=== PATIENT | female | born 1950 | race American Indian/Alaskan Native ===

== ENCOUNTER 2020-02-09 13:07 | Observation (INO) | payer MEDICARE ==
--- NOTE | 2020-02-09 13:20 | Event Note ---
ED Screening Note ED Screening Note: MISSED HD FOR SEVERAL DAYS This initial assessment/diagnostic orders/clinical plan/treatment(s) is/are subject to change based on patients health status, clinical progression and re- assessment by fellow clinical providers in the ED. Further treatment and workup at subsequent clinical providers discretion. Patient/guardian urged not to elope from the ED as their condition may be serious if not clinically assessed and managed. Initial orders include: HERE FOR HD
[2020-02-09 14:27] LABS: Basophils % (Auto) 0.8 % (0.0-1.8); Eosinophils # (Auto) 0.2 K/mm3 (0.0-0.4); Eosinophils % (Auto) 3.9 % (0.0-4.3); Hematocrit 28.2 % (30.3-42.9); Hemoglobin 9.5 gm/dl (10.1-14.3); Lymphocytes # (Auto) 0.8 K/mm3 (1.2-5.4); Mean Corpuscular HGB Conc 34 % (30-34); Mean Corpuscular Volume 98 fl (79-97); Monocytes # (Auto) 0.3 K/mm3 (0.0-0.8); Monocytes % (Auto) 7.6 % (0.0-7.3); Platelet Count 216 K/mm3 (140-440); Red Blood Count 2.89 M/mm3 (3.65-5.03); Red Cell Distribution Width 16.3 % (13.2-15.2)
[2020-02-09 14:41] LABS: Calcium 9.5 mg/dL (8.4-10.2)
--- NOTE | 2020-02-09 16:03 | Emergency Department Report ---
ED General Adult HPI - General Chief complaint: Medical Clearance Stated complaint: NEEDS DIALYSIS PUI?: No Time Seen by Provider: 02/09/20 13:21 Source: patient Mode of arrival: Wheelchair Limitations: No Limitations, Other - History of Present Illness Initial comments: Patient is a 69-year-old female that presents emergency room for dialysis. Patient states that she has visited [place] from [place] several times and never had a problem having dialysis however this time the patient labs were not transferred from her dialysis clinic in [place] to her dialysis clinic here and the dialysis clinic was not able to do it. Patient states she normally gets a Friday, , Friday. Patient states her last dialysis was last Friday. Patient states she is going to be here for a week. Patient denies cramps. Patient denies chest pain or shortness of breath. Patient denies shortness of breath and chest pain. Patient denies recent travel. Patient denies recent international travel. Patient denies exposure to the novel coronavirus. Patient denies sick contacts. Patient denies fever and chills. Patient denies cough. Patient denies diarrhea. Patient denies coming in contact with anybody with symptoms of the novel coronavirus. -: Sudden Severity scale (0 -10): 0 Consistency: constant Improves with: none Worsens with: none Associated Symptoms: denies other symptoms. denies: confusion, chest pain, cough, diaphoresis, fever/chills, headaches, loss of appetite, malaise, nausea/vomiting, rash, seizure, shortness of breath, syncope, weakness Treatments Prior to Arrival: none - Related Data Home Medications Medication Instructions Recorded Confirmed Last Taken Aspirin 81 mg PO DAILY 02/09/20 02/09/20 02/09/20 ISOSORBIDE MONOnitrate [Imdur ER] 30 mg PO DAILY 02/09/20 02/09/20 02/09/20 Sertraline [Zoloft] 50 mg PO QDAY 02/09/20 02/09/20 02/09/20 Simvastatin 80 mg PO DAILY 02/09/20 02/09/20 02/08/20 amLODIPine [Norvasc] 10 mg PO DAILY 02/09/20 02/09/20 02/09/20 Allergies Allergy/AdvReac Type Severity Reaction Status Date / Time No Known Allergies Allergy Unverified 02/09/20 13:14 ED Review of Systems ROS: Stated complaint: NEEDS DIALYSIS Other details as noted in HPI Constitutional: denies: chills, fever Eyes: denies: eye pain, eye discharge, vision change ENT: denies: ear pain, throat pain Respiratory: denies: cough, shortness of breath, wheezing Cardiovascular: denies: chest pain, palpitations Endocrine: no symptoms reported Gastrointestinal: denies: abdominal pain, nausea, diarrhea Genitourinary: denies: urgency, dysuria, discharge Musculoskeletal: denies: back pain, joint swelling, arthralgia Skin: denies: rash, lesions Neurological: denies: headache, weakness, paresthesias Psychiatric: denies: anxiety, depression Hematological/Lymphatic: denies: easy bleeding, easy bruising ED Past Medical Hx - Past Medical History Previous Medical History?: Yes Hx Hypertension: Yes Hx Diabetes: Yes Hx Renal Disease: Yes Additional medical history: Dialysis on T, Th, Sat. Fistula to Left Upper Arm - Surgical History Past Surgical History?: Yes Additional Surgical History: Dialysis Fistula to Left Upper Arm - Family History Family history: no significant - Social History Smoking Status: Never Smoker Substance Use Type: None - Medications Home Medications: Home Medications Medication Instructions Recorded Confirmed Last Taken Type Aspirin 81 mg PO DAILY 02/09/20 02/09/20 02/09/20 History ISOSORBIDE MONOnitrate [Imdur ER] 30 mg PO DAILY 02/09/20 02/09/20 02/09/20 Hist ory Sertraline [Zoloft] 50 mg PO QDAY 02/09/20 02/09/20 02/09/20 History Simvastatin 80 mg PO DAILY 02/09/20 02/09/20 02/08/20 History amLODIPine [Norvasc] 10 mg PO DAILY 02/09/20 02/09/20 02/09/20 History ED Physical Exam - General Limitations: No Limitations, Other General appearance: alert, in no apparent distress - Head Head exam: Present: atraumatic, normocephalic - Eye Eye exam: Present: normal appearance - ENT ENT exam: Present: mucous membranes moist - Neck Neck exam: Present: normal inspection - Respiratory Respiratory exam: Present: normal lung sounds bilaterally. Absent: respiratory distress, wheezes, rales - Cardiovascular Cardiovascular Exam: Present: regular rate, normal rhythm. Absent: systolic murmur, diastolic murmur, rubs, gallop - GI/Abdominal GI/Abdominal exam: Present: soft, normal bowel sounds. Absent: distended, tenderness, guarding - Extremities Exam Extremities exam: Present: normal inspection - Back Exam Back exam: Present: normal inspection - Neurological Exam Neurological exam: Present: alert, oriented X3 - Psychiatric Psychiatric exam: Present: normal affect, normal mood - Skin Skin exam: Present: warm, dry, intact, normal color. Absent: rash ED Course Vital Signs 02/09/20 02/09/20 02/09/20 13:16 13:54 15:13 Temperature 98.1 F 98.1 F Pulse Rate 68 70 Respiratory 18 20 18 Rate Blood Pressure 97/50 97/50 Blood Pressure [Right] O2 Sat by Pulse 94 94 Oximetry 02/09/20 15:24 Temperature 98.6 F Pulse Rate 95 H Respiratory 18 Rate Blood Pressure Blood Pressure 126/54 [Right] O2 Sat by Pulse 97 Oximetry - Reevaluation(s) Reevaluation #1: I discussed all results with patient. I discussed plan of care with patient. Patient agrees with plan of care and admission. Patient to be admitted to the hospitalist service. 02/09/20 16:13 - Consultations Consultation #1: Nephrology paged 02/09/20 16:04 Dr. Puentes states he will see the patient and see the patient and order dialys is. 02/09/20 16:10 ED Medical Decision Making - Lab Data Result diagrams: 02/09/20 13:37 02/09/20 13:37 - Medical Decision Making Patient is patient is a 69-year-old female that presents emergency room with complaints of missed dialysis. patient has no physical complaints. I discussed the case with nephrology and they agreed to dialyze the patient in hospital. Patient admitted to the hospitalist service. Patient's labs are consistent with end-stage renal disease and needing dialysis. - Differential Diagnosis Missed dialysis, hyperkalemia, end-stage renal disease Critical Care Time: Yes Critical care time in (mins) excluding proc time.: 35 Critical care attestation.: If time is entered above; I have spent that time in minutes in the direct care of this critically ill patient, excluding procedure time. Critical Care Time: 35 minutes ED Disposition Clinical Impression: Missed dialysis, ESRD needing dialysis, CKD (chronic kidney disease) stage V requiring chronic dialysis Disposition: 09 OP ADMIT IP TO THIS HOSP Is pt being admited?: Yes Does the pt Need Aspirin: No Condition: Critical Time of Disposition: 16:12
[2020-02-09] MEDS ORDERED: SODIUM CHLORIDE 0.9% 100 ML IV PRN ×2 (16:13→16:26)
[2020-02-09] MEDS ORDERED: HEPARIN 10,000 UNITS/10 ML VIAL IV PRN (16:13)
[2020-02-09] MEDS ORDERED: EPOETIN ALFA 10,000 UNIT/1 ML INJ SUB-Q PRN (16:13)
--- NOTE | 2020-02-09 16:13 | Consultation ---
History of Present Illness - Reason for Consult Consult date: 02/09/20 end stage renal disease - History of Present Illness The patient is a 69 YO female with history significant for HTN, ?DM type 2, HLD, ESRD on HD(TTS) and Anemia who presented to [facility] ED 02/08 for need of hemodialysis. She is visiting from [facility] and was had arranged outpatient HD at a local center but they were unable to take her for unknown reason. Patient denies any complaint at this time. Last outpatient HD was on 02/05/20. Initial BP was low but improved. Lab studies reviewed. Nephrology was consulted to manage ESRD. Past History Past Medical History: anemia, diabetes, dialysis, ESRD, hypertension Medications and Allergies Allergies Allergy/AdvReac Type Severity Reaction Status Date / Time No Known Allergies Allergy Unverified 02/09/20 13:14 Home Medications Medication Instructions Recorded Confirmed Last Taken Type Aspirin 81 mg PO DAILY 02/09/20 02/09/20 02/09/20 History ISOSORBIDE MONOnitrate [Imdur ER] 30 mg PO DAILY 02/09/20 02/09/20 02/09/20 History Sertraline [Zoloft] 50 mg PO QDAY 02/09/20 02/09/20 02/09/20 History Simvastatin 80 mg PO DAILY 02/09/20 02/09/20 02/08/20 History amLODIPine [Norvasc] 10 mg PO DAILY 02/09/20 02/09/20 02/09/20 History Review of Systems Constitutional: no weight loss, no weight gain, no fever, no chills, no poor appetite Ears, nose, mouth and throat: no epistaxis Breasts: deferred Cardiovascular: high blood pressure, no chest pain, no orthopnea, no edema, no syncope, no lightheadedness, no shortness of breath, no leg edema Respiratory: no cough, no hemoptysis, no shortness of breath, no dyspnea on exertion, no sleep apnea, no home oxygen Gastrointestinal: no abdominal pain, no nausea, no vomiting, no diarrhea, no hematemesis, no melena, no hematochezia Genitourinary Female: no urinary frequency, no stress incontinence Rectal: no bleeding Integumentary: no rash, no redness, no wounds Neurological: no convulsions, no aphasia, no change in speech, no change in mentation, no confusion Exam - Vital Signs Vital signs: Vital Signs Temp Pulse Resp BP Pulse Ox 98.1 F 68 18 97/50 94 02/09/20 13:16 02/09/20 13:16 02/09/20 13:16 02/09/20 13:16 02/09/20 13:16 - General Appearance General appearance: well-developed, well-nourished, appears stated age, other (no distress) EENT: ATNC, PERRL, vision intact, hearing diminished Neck: Present: neck supple, trachea midline Respiratory: Clear to Ascultation Heart: regular, S1S2, no murmurs Gastrointestinal: Present: normoactive bowel sounds. Absent: tenderness, distended Integumentary: no rash, warm and dry Neurologic: no focal deficit, no asterixis, alert and oriented x3 Musculoskeletal: Present: other (no edema, L arm AVF) Psychiatric: cooperative Results - Lab Results 02/09/20 13:37 02/09/20 13:37 Most recent lab results Calcium 9.5 mg/dL (8.4-10.2) 02/09/20 13:37 Phosphorus 4.80 mg/dL (2.5-4.5) H 02/09/20 13:37 Assessment and Plan 1. ESRD: Continue hemodialysis three times a week, TTS schedule. Last outpatient hemodialysis was on 02/04. Meds dosage based on GFR. Hemodialysis: 02/08. 2. FEN: Monitor lytes. 3. Anemia: Epogen. Monitor. 4. HTN: Monitor BP.
--- NOTE | 2020-02-09 17:07 | History and Physical Report ---
History of Present Illness Chief complaint: I need dialysis History of present illness: 69 YO Female with ESRD on HD(T,R,Sa) last dialyzed on Friday, HTN, DM, HLD, Obesity Hyppoventilation Syndrome presents to ED for evaluation. Patient states that she presented to a local dialysis center for previously scheduled dialysis but was unable to go undergo dialysis. Patient transported to [facility] via private vehicle for further care and evaluation. Patient seen and evaluated in the emergency department. Lab and imaging studies reviewed. Patient found to have end-stage renal disease in need of dialysis. Nephrology team consulted in ED for urgent dialysis. Patient denies fever, chills, chest pain, palpitation, sh ortness of breath, productive cough, skin rash, recent ill contacts, or known exposure to COVID-19. Patient placed in observation status for further care due to increased risk of decompensation. Nephrology team consulted in ED for urgent dialysis. No prior admission for review. All medication listed at time of admission has been reconciled. Advanced care planning conducted in ED. Past History Past Medical History: diabetes, ESRD, hypertension, hyperlipidemia Past Surgical History: Other (Dialysis access) Social history: single. denies: smoking, alcohol abuse, prescription drug abuse, IV drug use Family history: diabetes, hypertension Medications and Allergies Allergies Allergy/AdvReac Type Severity Reaction Status Date / Time No Known Allergies Allergy Unverified 02/09/20 13:14 Home Medications Medication Instructions Recorded Confirmed Last Taken Type Aspirin 81 mg PO DAILY 02/09/20 02/09/20 02/09/20 History ISOSORBIDE MONOnitrate [Imdur ER] 30 mg PO DAILY 02/09/20 02/09/20 02/09/20 History Sertraline [Zoloft] 50 mg PO QDAY 02/09/20 02/09/20 02/09/20 History Simvastatin 80 mg PO DAILY 02/09/20 02/09/20 02/08/20 History amLODIPine [Norvasc] 10 mg PO DAILY 02/09/20 02/09/20 02/09/20 History Active Meds: Active Medications Epoetin Aaron (Procrit) 10,000 unit SUB-Q CAMILO PRN PRN Reason: hemodialysis Heparin Sodium (Porcine) (Heparin 10,000 Units/10 Ml) 2,000 unit IV CAMILO PRN PRN Reason: hemodialysis Sodium Chloride (Nacl 0.9%) 100 mls @ 999 mls/hr IV CAMILO PRN PRN Reason: Hypotension Sodium Chloride (Nacl 0.9%) 100 mls @ 999 mls/hr IV CAMILO PRN PRN Reason: Hypotension Review of Systems Constitutional: no weight loss, no weight gain, no fever, no chills Ears, nose, mouth and throat: no ear pain, no ear discharge, no tinnitis, no decreased hearing Breasts: no change in shape, no swelling, no mass Cardiovascular: no chest pain, no palpitations, no rapid/irregular heart beat, no syncope Respiratory: no cough, no cough with sputum, no excessive sputum, no shortness of breath, no dyspnea on exertion Gastrointestinal: no abdominal pain, no nausea, no vomiting, no diarrhea, no constipation Genitourinary Female: no pelvic pain, no flank pain, no menorrhagia, no dysuria Rectal: no pain, no incontinence, no bleeding Musculoskeletal: no neck stiffness, no neck pain, no shooting arm pain, no arm numbness/tingling, no low back pain Integumentary: no rash, no pruritis, no redness, no wounds, no jaundice Neurological: no transient paralysis, no paralysis, no parathesias, no numbness, no tingling Psychiatric: no anxiety, no memory loss, no change in sleep habits, no insomnia, no change in appetite, no suicidal ideation Endocrine: no cold intolerance, no polyphagia, no polydipsia, no nocturia, no excessive sweating Hematologic/Lymphatic: no easy bruising, no lymphadenopathy, no lymphedema Allergic/Immunologic: no urticaria, no allergic rhinitis, no persistent infections, no anaphylaxis Exam - Constitutional Vitals: Temp Pulse Resp BP Pulse Ox 98.6 F 95 H 18 126/54 97 02/09/20 15:24 02/09/20 15:24 02/09/20 15:24 02/09/20 15:24 02/09/20 15:24 General appearance: Present: obese - EENT Eyes: Present: PERRL ENT: hearing intact, clear oral mucosa - Neck Neck: Present: supple, normal ROM - Respiratory Respiratory effort: normal Respiratory: bilateral: CTA - Cardiovascular Heart Sounds: Present: S1 & S2. Absent: rub, click - Extremities Extremities: pulses symmetrical, No edema Peripheral Pulses: within normal limits - Abdominal General gastrointestinal: Present: soft, non-tender, non-distended, normal bowel sounds Female genitourinary: Present: normal - Integumentary Integumentary: Present: clear, warm, dry - Musculoskeletal Musculoskeletal: gait normal, strength equal bilaterally - Psychiatric Psychiatric: appropriate mood/affect, intact judgment & insight - Neurologic Neurologic: CNII-XII intact, moves all extremities Results - Labs CBC & Chem 7: 02/09/20 13:37 02/09/20 13:37 Labs: Abnormal lab results 02/09/20 02/09/20 Range/Units 13:37 13:37 WBC 3.9 L (4.5-11.0) K/mm3 RBC 2.89 L (3.65-5.03) M/mm3 Hgb 9.5 L (10.1-14.3) gm/dl Hct 28.2 L (30.3-42.9) % MCV 98 H (79-97) fl MCH 33 H (28-32) pg RDW 16.3 H (13.2-15.2) % Nye % (Auto) 7.6 H (0.0-7.3) % Lymph # 0.8 L (1.2-5.4) K/mm3 Sodium 146 H (137-145) mmol/L BUN 57 H (7-17) mg/dL Creatinine 6.0 H (0.7-1.2) mg/dL Glucose 106 H (65-100) mg/dL Phosphorus 4.80 H (2.5-4.5) mg/dL NT-Pro-B Natriuret Pep 3465 H (0-900) pg/mL Assessment and Plan - Patient Problems (1) ESRD needing dialysis Current Visit: Yes Status: Acute Plan to address problem: Strict I's/O, monitor urine output every shift, daily weight, avoid nephrotoxic agents, nephrology team consulted in ED for urgent dialysis. (2) Hypertension Current Visit: Yes Status: Acute Qualifiers: Hypertension type: essential hypertension Qualified Code(s): I10 - Essential (primary) hypertension Plan to address problem: Monitor blood pressure every shift, continue medical management. (3) Hyperlipidemia Current Visit: Yes Status: Acute Qualifiers: Hyperlipidemia type: mixed hyperlipidemia Qualified Code(s): E78.2 - Mixed hyperlipidemia Plan to address problem: Lipid panel, low carbohydrate, low-cholesterol, low-fat diet, risk factor reduction, statin therapy as clinically indicated (4) Diabetes Current Visit: Yes Status: Acute Plan to address problem: Sliding-scale insulin diet, Accu-Chek, consistent carbohydrate diet, hypoglycemia protocol (5) DVT prophylaxis Current Visit: Yes Status: Acute Plan to address problem: SCD to bilateral lower extremities while in bed, patient is ambulatory (6) Advance care planning Current Visit: Yes Status: Acute Plan to address problem: Disease education conducted, patient knowledges understanding and agreement with care plan, prognosis discussed, patient is full code, +30 minutes.
[2020-02-09] MEDS ORDERED: ONDANSETRON 4 MG/2 ML INJ IV PRN (17:08)
[2020-02-09] MEDS ORDERED: ACETAMINOPHEN 325 MG TAB PO PRN (17:08)
[2020-02-09 18:05] LABS: Hepatitis B Surface Antigen Non-Reactive (Negative); Hepatitis C Virus Antibody Non-Reactive (NonReactive)
[2020-02-09 21:16] VITALS: BP 163/77
[2020-02-10] MEDS ORDERED: SIMVASTATIN 80 MG PO SCH (10:00)
[2020-02-10] MEDS ORDERED: SERTRALINE 50 MG TAB PO SCH (10:00)
[2020-02-10] MEDS ORDERED: amLODIPine 10 MG TAB PO SCH (10:00)
[2020-02-10] MEDS ORDERED: ASPIRIN EC 81 MG TAB PO SCH (10:00)
[2020-02-10] MEDS ORDERED: NON-FORMULARY EACH (Aspirin 81 MG) PO SCH (10:00)
== END 2020-02-09 21:41 | disposition home or self-care (01) ==
LOC: ED 13:07 → 3B-SURG 17:08
PROVIDERS: ADMIT Internal Medicine; ATTEND Internal Medicine
DX: I12.0 Hypertensive chronic kidney disease with stage 5 chronic kidney disease or end stage renal disease (principal); E11.22 Type 2 diabetes mellitus with diabetic chronic kidney disease; N18.6 End stage renal disease; E78.2 Mixed hyperlipidemia; D64.9 Anemia, unspecified; E66.2 Morbid (severe) obesity with alveolar hypoventilation; Z91.15 Patient's noncompliance with renal dialysis; Z99.2 Dependence on renal dialysis; Z79.82 Long term (current) use of aspirin; Z79.899 Other long term (current) drug therapy; Z68.32 Body mass index [BMI] 32.0-32.9, adult
CPT/HCPCS: 36415; 80048; 80074; 83880; 84100; 85025; 99291; G0257; G0378; J0885; 96372